=== PATIENT | male | born 1970 | race Two or more races ===

== ENCOUNTER 2024-08-04 17:23 | Emergency (ER) | payer MEDICAID ==
[~2024-08-04] VITALS: Ht 193 cm; Wt 105.0 kg
[2024-08-04 17:58] VITALS: O2SAT 94
[2024-08-04 20:28] LABS: BASOPHILS % 0.8 % (0.0-2.0); EOSINOPHILS % 0.1 % (0.0-5.0); HEMATOCRIT. 40.7 % (42.0-52.0); HEMOGLOBIN. 13.9 g/dL (14.0-18.0); LYMPHOCYTES % 24.7 % (20.0-50.0); MEAN CORPUSCULAR HEMOGLOBIN 32.9 pg (28.0-32.0); MEAN CORPUSCULAR HGB CONC 34.2 g/dL (31.0-37.0); MEAN CORPUSCULAR VOLUME 96.3 fL (80.0-94.0); MEAN PLATELET VOLUME 7.3 fl (7.4-10.4); MONOCYTES % 5.3 % (2.0-8.0); NEUTROPHILS % 69.1 % (40.0-76.0); PLATELET 154 x1000/uL (130-400); RED BLOOD CELL COUNT 4.22 mill/uL (4.7-6.1); RED CELL DISTRIBUTION WIDTH 16.5 % (11.6-14.6); WHITE BLOOD COUNT 5.1 x1000/uL (4.5-11.0)
[2024-08-04 20:30] LABS: DIFFERENTIAL COMMENT 1
[2024-08-04 20:32] LABS: CHLORIDE 99 mEq/L (98-107); POTASSIUM 3.8 mEq/L (3.5-5.1); SODIUM 142 mEq/L (136-145)
[2024-08-04 20:33] LABS: CARBON DIOXIDE 24 mEq/L (21-32)
[2024-08-04 20:34] LABS: PROTHROMBIN TIME 10.8 sec (9.6-11.0)
[2024-08-04 20:38] LABS: CREATININE 1.1 mg/dL (0.6-1.3); GLUCOSE 92 mg/dL (70-105); TROPONIN I HIGH SENSITIVITY 22 ng/L (3.0-53)
[2024-08-04 20:39] LABS: UREA NITROGEN BLOOD 18 mg/dL (9-23)
[2024-08-04 20:48] LABS: ETHANOL BLOOD 286 mg/dL (<10)
[2024-08-04] MEDS: SODIUM CHLORIDE 0.9% 1,000 ML IV ONE (20:59)
[2024-08-04 22:00] VITALS: BP 135/96; PULSE 98; RESP 16; TEMP 36.83628
[2024-08-08] MEDS ORDERED: ASPI-1406 MT (10:31)
[2024-08-08] MEDS ORDERED: MULT-1146 MT (10:31)
[2024-08-08] MEDS ORDERED: THIA50TA12 MT (10:31)
[2024-08-08] MEDS ORDERED: FOLI-43 MT (10:31)
[2024-08-08] MEDS ORDERED: ATOR10TA MT (10:31)
== END 2024-08-04 23:09 | disposition home or self-care (01) ==
LOC: ER 17:23
DX: F10.129 Alcohol abuse with intoxication, unspecified (principal); I10 Essential (primary) hypertension; R07.89 Other chest pain; Y90.8 Blood alcohol level of 240 mg/100 ml or more
CPT/HCPCS: 80048; 80320; 83880; 83690; 85025; 85610; 84484; 36415; 71045; 93005; 96360; 99285; J7030; G0480